=== PATIENT | male | born 1980 | race Caucasian/White ===

== ENCOUNTER 2018-01-03 18:33 | Emergency (ER) | payer BC, OTHER ==
[2018-01-03 18:36] VITALS: BP 142/63
[2018-01-03] MEDS ORDERED: Sodium Chloride 0.9% 10 ML Syringe FLUSH PRN (18:40)
--- NOTE | 2018-01-03 18:44 | EDM.PDOC ---
ED HPI GENERAL MEDICAL PROBLEM - General Chief Complaint: Respiratory Problem Stated Complaint: cough, fever Time Seen by Provider: 01/03/18 18:34 Source of Information: Reports: Patient, Family, RN, RN Notes Reviewed History Limitations: Reports: No Limitations - History of Present Illness INITIAL COMMENTS - FREE TEXT/NARRATIVE: Patient presents to the ED at [facility] complaining of a fever, cough, and chills that started around 4pm this afternoon. He states he has a history of pneumonia in the past. He is a current cigarette smoker. He denies any N/V/D. Feels SOB. States its hard to take in a deep breath. Cough is producing a green/ yellow appearing purulent sputum. No chest pain. No URI symptoms. No dizziness or headache. Onset: Today Onset Date: 01/03/18 Onset Time: 16:00 generalized Pain Score (Numeric/FACES): 3 - Related Data Allergies Allergy/AdvReac Type Severity Reaction Status Date / Time No Known Allergies Allergy Verified 01/03/18 18:34 Home Meds: Home Meds Levofloxacin [Levaquin] 1 tab PO DAILY 10 Days #10 tab 01/03/18 [Rx] Magnesium Chloride [Slow-Mag] 2 tab PO ONETIME #2 tablet. 01/03/18 [Rx] predniSONE [Deltasone] 1 tab PO BID 5 Days #10 tablet 01/03/18 [Rx] Past Medical History - Past Health History Medical/Surgical History: Denies Medical/Surgical History Social & Family History - Tobacco Use Smoking Status *Q: Current Every Day Smoker Years of Tobacco use: 15 - Alcohol Use Days Per Week of Alcohol Use: 1 Number of Drinks Per Day: 2 Total Drinks Per Week: 2 - Recreational Drug Use Recreational Drug Use: No ED ROS GENERAL - Review of Systems Review Of Systems: See Below Constitutional: Reports: Fever, Chills, Decreased Appetite. Denies: Weakness HEENT: Reports: No Symptoms Respiratory: Reports: Shortness of Breath, Cough, Sputum. Denies: Wheezing Cardiovascular: Denies: Chest Pain, Palpitations GI/Abdominal: Denies: Abdominal Pain, Nausea, Vomiting Skin: Reports: No Symptoms Neurological: Reports: No Symptoms. Denies: Dizziness, Headache ED EXAM, GENERAL - Physical Exam Exam: See Below Exam Limited By: No Limitations General Appearance: Alert, No Apparent Distress Eye Exam: Bilateral Eye: Normal Inspection, PERRL Ears: Normal External Exam, Normal Canal, Normal TMs Ear Exam: Bilateral Ear: TM normal Nose: Normal Inspection Throat/Mouth: Normal Inspection, Normal Oropharynx, No Airway Compromise Neck: Supple Respiratory/Chest: No Respiratory Distress, Decreased Breath Sounds, Rhonchi. No: Wheezing Cardiovascular: Normal Peripheral Pulses, Tachycardia Peripheral Pulses: 2+: Radial (L), Radial (R) GI/Abdominal: Normal Bowel Sounds, Soft, Non-Tender Neurological: Alert, Oriented Skin Exam: Warm, Dry, Intact, Normal Color, No Rash Course - Vital Signs Last Recorded V/S: Last Vital Signs Temp 38.7 C H 01/03/18 18:34 Pulse 130 H 01/03/18 18:34 Resp 24 H 01/03/18 18:34 BP 142/63 H 01/03/18 18:34 Pulse Ox 93 L 01/03/18 18:34 - Orders/Labs/Meds Orders: Active Orders 24 hr Category Date Time Status Chest 2V [CR] Stat Exams 01/03/18 18:40 Taken CULTURE BLOOD [BC] Stat Lab 01/03/18 19:10 Received CULTURE BLOOD [BC] Stat Lab 01/03/18 19:17 Received Sodium Chloride 0.9% [Saline Flush] Med 01/03/18 18:40 Active 10 ml FLUSH ASDIRECTED PRN Blood Culture x2 Reflex Set [OM.PC] Stat Oth 01/03/18 18:41 Ordered Peripheral IV Insertion Adult [OM.PC] Routine Oth 01/03/18 18:40 Ordered Medication Orders Sodium Chloride (Saline Flush) 10 ml FLUSH ASDIRECTED PRN PRN Reason: Keep Vein Open Labs: Laboratory Tests 01/03/18 01/03/18 01/03/18 Range/Units 19:10 19:10 19:10 WBC 17.4 H (4.0-10.0) x10^3/uL RBC 4.80 (4.5-6.0) x10^6/uL Hgb 14.8 (14.0-18.0) g/dL Hct 42.4 (40.0-52.0) % MCV 88.3 (78.0-93.0) fL MCH 30.8 (26.0-32.0) pg MCHC 34.9 (32.0-36.0) g/dL RDW Coeff of Yessi 13.4 (10.0-15.0) % Plt Count 202 (130-400) x10^3/uL Neut % (Auto) 80.8 H (50.0-80.0) % Lymph % (Auto) 8.7 L (25.0-50.0) % Whiteside % (Auto) 10.0 (2.0-11.0) % Eos % (Auto) 0.3 (0.0-4.0) % Baso % (Auto) 0.2 (0.2-1.2) % Sodium 139 (136-145) mmol/L Potassium 3.5 (3.5-5.1) mmol/L Chloride 103 (98-107) mmol/L Carbon Dioxide 27 (21-32) mmol/L BUN 16 (7-18) mg/dL Creatinine 1.3 (0.70-1.30) mg/dL Est Cr Clr Drug Dosing 99.60 mL/min Estimated GFR (MDRD) > 60 Glucose 120 H (74-106) mg/dL Lactic Acid 0.9 (0.4-2.0) mmol/L Calcium 8.7 (8.5-10.1) mg/dL Magnesium 1.5 L (1.8-2.4) mg/dL C-Reactive Protein 4.0 H (<=0.9) mg/dL Meds: Medications Generic Name Dose Route Start Last Admin Trade Name Freq PRN Reason Stop Dose Admin Sodium Chloride 10 ml 01/03/18 18:40 Saline Flush FLUSH ASDIRECTED PRN Keep Vein Open Discontinued Medications Generic Name Dose Route Start Last Admin Trade Name Freq PRN Reason Stop Dose Admin Ceftriaxone Sodium 2 gm 01/03/18 19:25 01/03/18 19:30 Rocephin IVPUSH 01/03/18 19:26 2 gm ONETIME ONE Administration Sodium Chloride 1,000 mls @ 999 mls/hr 01/03/18 18:41 01/03/18 18:50 Normal Saline IV 01/03/18 19:41 999 mls/hr ONETIME ONE Administration - Radiology Interpretation Free Text/Narrative:: CXR: Mild left base infiltrates or atelectasis See scanned report in EMR Departure - Departure Time of Disposition: 19:56 Disposition: Home, Self-Care 01 Condition: Good Clinical Impression: Community acquired pneumonia Qualifiers: Laterality: left Lung location: lower lobe of lung Qualified Code(s): J18.1 - Lobar pneumonia, unspecified organism - Discharge Information Prescriptions: Levofloxacin [Levaquin] 1 tab PO DAILY 10 Days #10 tab Magnesium Chloride [Slow-Mag] 2 tab PO ONETIME #2 tablet. predniSONE [Deltasone] 1 tab PO BID 5 Days #10 tablet Instructions: Community-Acquired Pneumonia, Adult, [id number] Referrals: Gaby Epps DO [Primary Care Provider] - Forms: ED Department Discharge Additional Instructions: 1. Stay well hydrated and rest 2. STOP smoking 3. Take medications as prescribed and for the full coarse 4. LOTS of water 5. Cough and deep breath several times an hour 6. May alternate Tylenol/Advil as needed 7. See your Primary as symptoms warrant 8. Call with any questions/concerns - Problem List Review Problem List Initiated/Reviewed/Updated: Yes - My Orders Last 24 Hours: My Active Orders 01/03/18 18:40 Chest 2V [CR] Stat Sodium Chloride 0.9% [Saline Flush] 10 ml FLUSH ASDIRECTED PRN Peripheral IV Insertion Adult [OM.PC] Routine 01/03/18 18:41 Blood Culture x2 Reflex Set [OM.PC] Stat 01/03/18 19:10 CULTURE BLOOD [BC] Stat 01/03/18 19:17 CULTURE BLOOD [BC] Stat - Assessment/Plan Last 24 Hours: My Active Orders 01/03/18 18:40 Chest 2V [CR] Stat Sodium Chloride 0.9% [Saline Flush] 10 ml FLUSH ASDIRECTED PRN Peripheral IV Insertion Adult [OM.PC] Routine 01/03/18 18:41 Blood Culture x2 Reflex Set [OM.PC] Stat 01/03/18 19:10 CULTURE BLOOD [BC] Stat 01/03/18 19:17 CULTURE BLOOD [BC] Stat
[2018-01-03] MEDS: Sodium Chloride 0.9% 1,000 ML IV ONE (18:50)
[2018-01-03] MEDS: cefTRIAXone 2 GM Vial IVPUSH ONE (19:30)
[2018-01-03 19:40] LABS: CHLORIDE,CL 103 mmol/L (98-107); SODIUM,NA 139 mmol/L (136-145)
[2018-01-03] MEDS ORDERED: Magnesium Chloride 64 MG Tab.ER ONE (19:57)
== END 2018-01-03 20:15 | disposition home or self-care (01) ==
LOC: VM.ED 18:33
DX: J18.9 Pneumonia, unspecified organism (principal); F17.200 Nicotine dependence, unspecified, uncomplicated; Z79.899 Other long term (current) drug therapy
CPT/HCPCS: 36415; 71046; 80048; 83605; 83735; 85025; 86140; 87040; 87804; 96365; 96375; 99284; J0696; J7030